=== PATIENT | male | born 1970 | race Caucasian/White ===

== ENCOUNTER 2022-03-02 16:09 | Emergency (ER) | payer OTHER, SELFPAY ==
[2022-03-02 16:11] VITALS: BP 182/101; PULSE 95; RESP 18; TEMP 36.6; O2SAT 99; BMI 29.8
[2022-03-02] MEDS: Lidocaine 1% (20 ml mdv) 20 ML Vial INFILT (18:36)
--- NOTE | 2022-03-02 18:58 | EX.ED.GENINJ ---
HPI History of Present Illness Chief Complaint: Bite Associated Symptoms Associated Symptoms: Negative for Parasthesias, Weakness or Loss of function Narrative Narrative: Patient presents with a laceration to his R palm from a dog bite. The laceration occurred around 4pm this afternoon. The dog is UTD with rabies vaccinations and patient is UTD with tetanus vaccine (02/2020). Tetanus Immunization: <5 years PFSH PFS Medical History (Updated 03/02/22 @ 19:50 by MT Chen) Hypertension Home Medications amoxicillin 500 mg-potassium clavulanate 125 mg tablet (Augmentin) 1 tab PO BID dog bite 7 days #14 tabs 03/02/22 [Rx Last Taken Unknown] Allergy/AdvReac Type Severity Reaction Status Date / Time No Known Allergies Allergy Verified 03/02/22 16:09 Surgical History (Updated 03/02/22 @ 18:16 by Rose Anaya) History of ureter stent Status post right foot surgery Social History Smoking Status: Never smoker ROS ROS ED Constitutional Constitutional ED: Denies chills or fever(s) Eyes Eyes: Denies change in vision ENT ENT ED: Denies rhinorrhea or sore throat Cardiovascular Cardiovascular: Denies chest pain Respiratory/Chest Respiratory/Chest: Denies dyspnea on exertion Gastrointestinal Gastrointestinal: Denies abdominal pain Genitourinary Genitourinary ED: Denies dysuria Musculoskeletal Musculoskeletal: Denies arthralgias Integumentary Denies abscess Neurologic Neurologic: Denies paresthesias or weakness Psychiatric Psychiatric: Denies anxiety or depression EXAM Physical Exam Const Vital Signs: 03/02/22 16:11 Temperature 97.8 F Temperature Source Temporal Pulse Rate 95 Respiratory Rate 18 Blood Pressure 182/101 H Blood Pressure Mean 128 Pulse Ox 99 Oxygen Delivery Method Room Air Positive well nourished HEENT atraumatic Eyes PERRL and EOMs intact bilaterally Neck full ROM Resp normal respiratory effort and clear to auscultation bilaterally Cardio regular rhythm and no murmurs GI non-distended and no masses Extremity normal to inspection Neuro oriented x3, moves all extremities, no focal motor deficits, no sensory deficits noted and gait normal Sensorium / Orientation: alert, oriented to person, oriented to place and oriented to time Motor Exam: strength 5/5 throughout Psych mental status grossly normal Skin Skin Narrative: laceration on side of R palm 2 inches in length with significant bleeding. No ecchymosis visualized. Mild edema near laceration site extending to patients R ring and R pinky finger. PROC Procedures Lacerations R hand: Length: 5 cm Depth: Skin Shape: Linear Prep: Sterile Conditions Laceration repair: Irrigated, Lidocaine and Skin sutures Irrigated (ml): 50 Number of Sutures/[place]: 3 Suture Information: Simple and 4-0 Comment: 4-0 nylon sutures used. MDM MDM MDM Narrative Medical decision making narrative: Wound was irrigated with 50mL normal saline and 3 stitches were placed in the R palm laceration with 4-0 nylon. Augmentin has been prescribed to patient. Patient has been educated on how to keep laceration clean and was told to follow up with PCP in one week for suture removal. Patient has been educated on signs of infection such as increased redness, swelling, edema, and purulent discharge and has been instructed to seek medical attention if any occurs. Plan has been reviewed with Dr. Dominguez. Discharge Plan Triage Chief Complaint: Bite ED Midlevel Provider: Elizabeth Griffin ED Provider: Rylan Dominguez Dx/Rx/DC Orders Clinical Impression: Laceration Instructions: ED Dog Bite Prescriptions: New amoxicillin-pot clavulanate [Augmentin] 500-125 mg tablet 1 tab PO BID 7 Days Qty: 14 0RF Primary Care Provider: CARLOS CASON Referrals: CARLOS CASON [Other] - 7 Days for suture removal Activity Restrictions/Additional Instructions: Patient has been encouraged to remove bandage after 24 hours and gently clean the wound twice daily. Wound may be covered with a thin layer of petroleum jelly and a nonstick bandage. If patient notices any increase in redness, swelling, bleeding, purulent discharge, or if he has difficulty moving hand/fingers he should seek medical attention. Disposition Disposition: Home, Self Care Discharge Date/Time: 03/02/22 20:02
[2022-03-02] MEDS: Amox/Clavulanate 875 MG Tablet PO (19:58)
== END 2022-03-02 20:02 | disposition home or self-care (01) ==
PROVIDERS: Emergency Provider Emergency Medicine; Visit Provider Emergency Medicine
DX: S61.411A Laceration without foreign body of right hand, initial encounter (principal); I10 Essential (primary) hypertension; W54.0XXA Bitten by dog, initial encounter
CPT/HCPCS: 12002; 99284